=== PATIENT | female | born 1965 | race African-American/Black ===

== ENCOUNTER 2017-01-24 08:53 | Emergency (ER) | payer OTHER ==
[~2017-01-24] VITALS: Wt 86.6 kg
[~2017-01-24 08:53] MED LIST: ANAPROX DS550 MG PO; BACTRIM DS 8001 TA1 PO; CIPRO500 MG PO; FIORICET 325 MG1 TAB PO; FLEXERIL10 MG PO; MOTRIN800 MG PO; TRAMADOL HCL50 MG PO; ULTRAM50 MG PO
[2017-01-24] MEDS ORDERED: CLARITIN10 MG PO (09:04)
[2017-01-24] MEDS ORDERED: ZANTAC 150150 MG PO (09:04)
[2017-01-24 09:09] LABS: BASO % 0.6 % (0.0-1.0); EOS # 0.1 10*3/uL (0.0-0.4); EOS % 2.7 % (1.0-4.0); HEMATOCRIT 40.3 % (37.0-47.0); HEMOGLOBIN 12.2 g/dl (12.0-16.0); LYMPH # 1.6 10*3/uL (1.3-4.4); LYMPH % 30.4 % (27.0-41.0); MEAN CELL VOLUME 79.6 fl (81.0-99.0); MEAN CORPUSCULAR HGB 24.1 pg (27.0-31.0); MEAN CORPUSCULAR HGB CONC 30.3 g/dl (33.0-37.0); MONO # 0.6 10*3/uL (0.1-1.0); MONO % 11.8 % (3.0-9.0); NEUT # 2.9 10*3/uL (2.3-7.9); NEUT % 54.1 % (47.0-73.0); PLATELET COUNT AUTOMATED 189 10*3/uL (130-400); RED BLOOD COUNT 5.06 10*6/uL (4.10-5.10); RED CELL DISTRI WIDTH 14.4 % (0-14.5); WHITE BLOOD COUNT 5.3 10*3/uL (4.8-10.8)
[2017-01-24 09:18] LABS: PROTHROMBIN TIME 10.5 SECONDS (9.0-12.4)
[2017-01-24 09:26] LABS: ALBUMIN 3.6 gm/dl (3.1-4.5); ALKALINE PHOSPHATASE 85 U/L (45-117); BILIRUBIN, TOTAL 0.4 mg/dl (0.2-1.0); BUN 16 mg/dl (7-24); CARBON DIOXIDE 25 mmol/L (21-32); CHLORIDE 106 mmol/L (98-107); EST GLOM FILT AFRICAN AMERICAN > 60 ml/min; GLUCOSE 137 mg/dL (65-99); MAGNESIUM 1.9 mg/dL (1.5-2.1); POTASSIUM 3.9 mmol/L (3.5-5.1); SGOT/AST 34 IU/L (3-35); SGPT/ALT 65 U/L (12-78); SODIUM 140 mmol/L (136-145); TOTAL PROTEIN 7.7 gm/dL (6.4-8.2)
[2017-01-24 09:30] LABS: TROPONIN I 0.132 ng/ml (<0.045)
[2017-01-24 10:11] VITALS: BP 146/90
== END 2017-01-24 10:29 | disposition short-term general hospital (02) ==
LOC: ED 08:53
PROVIDERS: Emergency Medicine
DX: I21.4 Non-ST elevation (NSTEMI) myocardial infarction (principal); I10 Essential (primary) hypertension; E78.5 Hyperlipidemia, unspecified; E11.9 Type 2 diabetes mellitus without complications; Z79.899 Other long term (current) drug therapy

== ENCOUNTER → 2017-01-31 | Outpatient (CLI) | payer OTHER ==
[~2017-01-31] MED LIST changes: +CLARITIN10 MG PO; +ZANTAC 150150 MG PO
[2017-01-31 10:57] LABS: HEMOGLOBIN A1c 6.6 % (4.8-5.6)
== END | disposition home or self-care (01) ==
LOC: RESCLI 04:23 → LAB 04:23 → RESCLI 16:10
PROVIDERS: Internal Medicine
DX: Z00.01 Encounter for general adult medical examination with abnormal findings (principal); E78.00 Pure hypercholesterolemia, unspecified; R79.9 Abnormal finding of blood chemistry, unspecified

== ENCOUNTER → 2017-02-14 | Outpatient (CLI) | payer OTHER | END | disposition home or self-care (01) | LOC: RESCLI 03:05 | DX: N95.0 Postmenopausal bleeding (principal); T81.4XXA Infection following a procedure, initial encounter; I25.118 Atherosclerotic heart disease of native coronary artery with other forms of angina pectoris; R23.8 Other skin changes; D50.9 Iron deficiency anemia, unspecified; J30.2 Other seasonal allergic rhinitis; K62.5 Hemorrhage of anus and rectum; I10 Essential (primary) hypertension; K21.0 Gastro-esophageal reflux disease with esophagitis; F10.10 Alcohol abuse, uncomplicated; M54.9 Dorsalgia, unspecified; R73.03 Prediabetes; E11.9 Type 2 diabetes mellitus without complications ==

== ENCOUNTER → 2017-02-15 | Outpatient (CLI) | payer OTHER ==
[2017-02-15 18:51] LABS: BASO % 0.7 % (0.0-1.0); EOS # 0.1 10*3/uL (0.0-0.4); EOS % 2.2 % (1.0-4.0); HEMATOCRIT 40.3 % (37.0-47.0); HEMOGLOBIN 12.5 g/dl (12.0-16.0); LYMPH # 2.4 10*3/uL (1.3-4.4); LYMPH % 39.7 % (27.0-41.0); MEAN CELL VOLUME 79.5 fl (81.0-99.0); MEAN CORPUSCULAR HGB 24.7 pg (27.0-31.0); MEAN PLATELET VOLUME 11.4 fl (9.6-12.3); MONO # 0.7 10*3/uL (0.1-1.0); MONO % 12.3 % (3.0-9.0); NEUT # 2.7 10*3/uL (2.3-7.9); NEUT % 44.8 % (47.0-73.0); PLATELET COUNT AUTOMATED 267 10*3/uL (130-400); RED BLOOD COUNT 5.07 10*6/uL (4.10-5.10); RED CELL DISTRI WIDTH 14.2 % (0-14.5); WHITE BLOOD COUNT 5.9 10*3/uL (4.8-10.8)
== END | disposition home or self-care (01) ==
LOC: LAB 02:01 → US 18:00
PROVIDERS: Internal Medicine
DX: N95.0 Postmenopausal bleeding (principal)

== ENCOUNTER 2017-02-28 09:16 | Inpatient (IN) | payer OTHER ==
[~2017-02-28] VITALS: Ht 177.8 cm; Wt 83.9 kg
[2017-02-28] VITALS (7 sets, daily range): BP systolic 109–150; BP diastolic 68–90
--- NOTE | ~2017-02-28 | EKG ---
[place], [place] ELECTROCARDIOGRAM REPORT NAME: LEIGH ANN PHAN UNIT #: [id number] ROOM: 516 DOCTOR: NICHOLAS SANCHEZ [facility],TARAS BIRTHDATE: [birth year] DOS: 02/28/2017 TIME: 0935 CONCLUSION: 1. Sinus rhythm. 2. Nonspecific ST changes. TARAS PETERSON MD CM:EKGRPT:ELECTROCARDIOGRAM REPORT [id number] 1307 TARAS PETERSON MD [facility]
--- NOTE | ~2017-02-28 | ST ---
[place], [place] EXERCISE STRESS TEST REPORT NAME: LEIGH ANN PHAN UNIT #: [id number] ROOM: 516 DOCTOR: NICHOLAS SANCHEZ [facility],TARAS BIRTHDATE: [birth year] DOS: 03/01/2017 LEXISCAN WITH CARDIOLITE Received Lexiscan 0.4 mg over 10 seconds. Heart rate is 88. No ischemic changes on the EKG. Isotope was injected. No complications noted. Myocardial perfusion scan to follow. TARAS PETERSON MD CM:STRESS:EXERCISE STRESS TEST REPORT 1239 1257 ASHA COLEMAN MD [facility]
--- NOTE | ~2017-02-28 | CON ---
[place], [place] REPORT OF CONSULTATION NAME: LEIGH ANN PHAN UNIT #: [id number] ROOM: 516 DOCTOR: TARAS PETERSON MD, FACC BIRTHDATE: [birth year] DOS: 03/01/2017 CARDIOLOGY CONSULTATION. HISTORY OF PRESENT ILLNESS: The patient came in with history of precordial chest discomfort, came to the emergency room. The patient also has exertional dyspnea. Initial troponin was minimally elevated. REJI Hi also following the patient. Chest x-ray showed no pneumonia. PAST MEDICAL HISTORY: History of gastritis, hypertension, MRSA, and non-insulin dependent diabetes mellitus. PAST SURGICAL HISTORY: History of cardiac catheterization ____ tonsillectomy. SOCIAL HISTORY: Former smoker, not now. No alcohol or drug use. FAMILY HISTORY: Father with history of heart attack, . Mother has history of heart disease. ALLERGIES: No known allergies. PHYSICAL EXAMINATION: VITAL SIGNS: Stable. GENERAL: Alert, not in any acute distress. SKIN: Warm, not diaphoretic. LUNGS: No rales. HEART: S1, S2, regular. No gallops. ABDOMEN: Soft. Color is good. Not diaphoretic. No cyanosis. NEUROLOGICAL: No focal neurological deficits noted. RECTAL: Deferred, unrelated. GENITAL: Deferred, unrelated. BREASTS: Deferred, unrelated DIAGNOSTIC STUDIES: EKG: No acute changes noted. Sinus rhythm. Initial enzymes: Troponin is very minimally elevated and creatinine is upper limits abnormal. IMPRESSION: There is no evidence of critical acute coronary syndrome. Troponin is minimally elevated. No EKG changes. PLAN: Lexiscan with Cardiolite evaluate for myocardial ischemia. It was abnormal coronary artery ____ otherwise consult medical therapy and risk management. [place], [place] REPORT OF CONSULTATION NAME: ARBEN PHANMAIKEL Mariano UNIT #: [id number] ROOM: 516 DOCTOR: TARAS PETERSON MD, FACC BIRTHDATE: [birth year] TARAS PETERSON MD CM:CONSTR:REPORT OF CONSULTATION 1248 03/01/17 1411 interface ASHA PEDERSEN DO and JONO MONTESINOS MD
[2017-02-28 09:53] LABS: BASO % 0.8 % (0.0-1.0); EOS # 0.2 10*3/uL (0.0-0.4); EOS % 4.5 % (1.0-4.0); LYMPH % 41.3 % (27.0-41.0); MEAN CELL VOLUME 78.8 fl (81.0-99.0); MEAN CORPUSCULAR HGB 24.9 pg (27.0-31.0); MEAN CORPUSCULAR HGB CONC 31.6 g/dl (33.0-37.0); MONO # 0.6 10*3/uL (0.1-1.0); NEUT % 40.2 % (47.0-73.0); PLATELET COUNT AUTOMATED 234 10*3/uL (130-400); RED BLOOD COUNT 4.82 10*6/uL (4.10-5.10); RED CELL DISTRI WIDTH 13.5 % (0-14.5); WHITE BLOOD COUNT 4.9 10*3/uL (4.8-10.8)
[2017-02-28 10:02] LABS: PROTHROMBIN TIME 10.2 SECONDS (9.0-12.4)
[2017-02-28 10:09] LABS: ALBUMIN 3.9 gm/dl (3.1-4.5); BILIRUBIN, TOTAL 0.2 mg/dl (0.2-1.0); MAGNESIUM 2.2 mg/dL (1.5-2.1); POTASSIUM 4.6 mmol/L (3.5-5.1)
[2017-02-28 10:17] LABS: TROPONIN I 0.075 ng/ml (<0.045)
[2017-02-28] MEDS ORDERED: PRINIVIL10 MG PO (12:52)
[2017-02-28] MEDS ORDERED: TYLENOL325 M1 PO (12:53)
[2017-02-28] MEDS ORDERED: PROCARDIA XL30 MG PO (12:54)
[2017-02-28] MEDS ORDERED: TOPROL XL50 M1 PO (12:55)
[2017-02-28] MEDS ORDERED: HYDR25T PO (12:55)
[2017-02-28] MEDS ORDERED: PRILOSEC20 M1 PO (12:56)
[2017-02-28] MEDS ORDERED: FERROUS SULFAT325 MG PO (12:57)
[2017-02-28] MEDS ORDERED: CEPHALEXIN500 M1 PO (12:58)
[2017-02-28] MEDS ORDERED: NITROSTAT0.4 MG SL (22:49)
[2017-03-01] VITALS: BP 109/45
[2017-03-01 06:25] LABS: BASO % 0.7 % (0.0-1.0); EOS # 0.2 10*3/uL (0.0-0.4); EOS % 4.8 % (1.0-4.0); HEMATOCRIT 40.1 % (37.0-47.0); HEMOGLOBIN 11.8 g/dl (12.0-16.0); LYMPH % 48.4 % (27.0-41.0); MEAN CELL VOLUME 81.3 fl (81.0-99.0); MEAN CORPUSCULAR HGB 23.9 pg (27.0-31.0); MEAN CORPUSCULAR HGB CONC 29.4 g/dl (33.0-37.0); MEAN PLATELET VOLUME 10.8 fl (9.6-12.3); MONO # 0.5 10*3/uL (0.1-1.0); MONO % 11.8 % (3.0-9.0); NEUT # 1.4 10*3/uL (2.3-7.9); NEUT % 33.8 % (47.0-73.0); PLATELET COUNT AUTOMATED 204 10*3/uL (130-400); RED BLOOD COUNT 4.93 10*6/uL (4.10-5.10); RED CELL DISTRI WIDTH 13.8 % (0-14.5); WHITE BLOOD COUNT 4.2 10*3/uL (4.8-10.8)
[2017-03-01 06:27] LABS: ALBUMIN 3.4 gm/dl (3.1-4.5); BILIRUBIN, TOTAL 0.2 mg/dl (0.2-1.0); FREE T4 0.79 ng/dl (0.76-1.46); POTASSIUM 4.8 mmol/L (3.5-5.1); TOTAL PROTEIN 7.4 gm/dL (6.4-8.2)
[2017-03-01 06:32] LABS: THYROID STIM HORMONE (HS) 0.983 uIU/ml (0.358-4.75)
[2017-03-01 06:44] LABS: INTERNATIONAL NORM RATIO 0.9 (2.0-3.5); PROTHROMBIN TIME 9.4 SECONDS (8.9-12.2)
[2017-03-01 07:37] LABS: VITAMIN D, 25-HYDROXY 27.5 ng/mL (30-100)
[2017-03-01 07:38] LABS: FOLIC ACID 14.55 ng/mL (>5.38)
[2017-03-01 08:00] VITALS: BP 118/57; BP 120/84
[2017-03-01 12:00] VITALS: BP 134/88
[2017-03-01 16:00] VITALS: BP 146/80
[2017-03-01 20:00] VITALS: BP 137/66
[2017-03-02] VITALS: BP 137/84
[2017-03-02 05:56] LABS: BASO % 0.7 % (0.0-1.0); EOS # 0.2 10*3/uL (0.0-0.4); EOS % 4.4 % (1.0-4.0); HEMATOCRIT 39.3 % (37.0-47.0); HEMOGLOBIN 11.6 g/dl (12.0-16.0); LYMPH # 2.1 10*3/uL (1.3-4.4); LYMPH % 45.3 % (27.0-41.0); MEAN CELL VOLUME 81.9 fl (81.0-99.0); MEAN CORPUSCULAR HGB 24.2 pg (27.0-31.0); MEAN CORPUSCULAR HGB CONC 29.5 g/dl (33.0-37.0); MEAN PLATELET VOLUME 10.3 fl (9.6-12.3); MONO # 0.6 10*3/uL (0.1-1.0); MONO % 12.7 % (3.0-9.0); NEUT # 1.7 10*3/uL (2.3-7.9); NEUT % 36.7 % (47.0-73.0); PLATELET COUNT AUTOMATED 170 10*3/uL (130-400); RED CELL DISTRI WIDTH 13.8 % (0-14.5); WHITE BLOOD COUNT 4.6 10*3/uL (4.8-10.8)
[2017-03-02 06:04] LABS: ALBUMIN 3.2 gm/dl (3.1-4.5); BILIRUBIN, TOTAL 0.2 mg/dl (0.2-1.0); POTASSIUM 4.5 mmol/L (3.5-5.1); TOTAL PROTEIN 6.8 gm/dL (6.4-8.2)
[2017-03-02 08:00] VITALS: BP 126/72
[2017-03-02 12:00] VITALS: BP 127/76
[2017-03-02] MEDS ORDERED: BLOOD PRESSURE1 EACH MC (13:05)
[2017-03-02] MEDS ORDERED: D-1000 185 MG-11 TAB PO (13:05)
[2017-03-02] MEDS ORDERED: LISINOPRIL2.5 MG PO (13:05)
[2017-03-02] MEDS ORDERED: ZOCOR10 MG PO ×2 (14:00→14:46)
[2017-03-02] MEDS ORDERED: ASPIRIN CHEWABL81 MG PO (14:01)
== END 2017-03-02 15:00 | disposition home or self-care (01) | DRG 311 ==
LOC: ED 09:16 → 5E 10:54 → EDHOLD 10:54 → 5E 11:13
PROVIDERS: Internal Medicine; Student in an Organized Health Care Education/Training Program
PROC: 4A02XM4 Measurement of Cardiac Total Activity, External Approach (ICD-10-PCS; principal; 2017-03-01)
PROC: 3E073KZ Introduction of Other Diagnostic Substance into Coronary Artery, Percutaneous Approach (ICD-10-PCS; 2017-03-01)
DX: I20.9 Angina pectoris, unspecified (principal); N17.0 Acute kidney failure with tubular necrosis; E83.41 Hypermagnesemia; I10 Essential (primary) hypertension; K29.70 Gastritis, unspecified, without bleeding; E11.9 Type 2 diabetes mellitus without complications; E66.3 Overweight; Z82.49 Family history of ischemic heart disease and other diseases of the circulatory system; Z86.14 Personal history of Methicillin resistant Staphylococcus aureus infection; I25.2 Old myocardial infarction; Z98.891 History of uterine scar from previous surgery; Z79.899 Other long term (current) drug therapy

== ENCOUNTER → 2017-03-07 | Outpatient (CLI) | payer OTHER ==
[~2017-03-07] MED LIST changes: +ASPIRIN CHEWABL81 MG PO; +BLOOD PRESSURE1 EACH MC; +CEPHALEXIN500 M1 PO; +D-1000 185 MG-11 TAB PO; +FERROUS SULFAT325 MG PO; +HYDR25T PO; +LISINOPRIL2.5 MG PO; +NITROSTAT0.4 MG SL; +PRILOSEC20 M1 PO; +PRINIVIL10 MG PO; +PROCARDIA XL30 MG PO; +TOPROL XL50 M1 PO; +TYLENOL325 M1 PO; +ZOCOR10 MG PO
== END | disposition home or self-care (01) ==
LOC: RESCLI 02:55
DX: I25.110 Atherosclerotic heart disease of native coronary artery with unstable angina pectoris (principal); J30.2 Other seasonal allergic rhinitis; D50.9 Iron deficiency anemia, unspecified; R19.5 Other fecal abnormalities; N95.0 Postmenopausal bleeding; I10 Essential (primary) hypertension; K21.9 Gastro-esophageal reflux disease without esophagitis; E11.65 Type 2 diabetes mellitus with hyperglycemia; E55.9 Vitamin D deficiency, unspecified; F10.10 Alcohol abuse, uncomplicated; B37.9 Candidiasis, unspecified

== ENCOUNTER → 2017-04-04 | Outpatient (CLI) | payer OTHER | END | disposition home or self-care (01) | LOC: RESCLI 01:29 | DX: I25.118 Atherosclerotic heart disease of native coronary artery with other forms of angina pectoris (principal); I10 Essential (primary) hypertension; R73.03 Prediabetes; K21.9 Gastro-esophageal reflux disease without esophagitis; J30.2 Other seasonal allergic rhinitis; E55.9 Vitamin D deficiency, unspecified; D50.9 Iron deficiency anemia, unspecified; R19.5 Other fecal abnormalities; N95.0 Postmenopausal bleeding; B37.9 Candidiasis, unspecified; E66.3 Overweight; F41.9 Anxiety disorder, unspecified ==

== ENCOUNTER → 2017-05-02 | Day surgery (SDC) | payer OTHER ==
[~2017-05-02] VITALS: Ht 177.8 cm; Wt 84.8 kg
[~2017-05-02] MED LIST changes: +HYDROCHLOROTHIA25 M1 PO; +PAXIL20 M1 PO
--- NOTE | ~2017-05-02 | O ---
[place], [place] OPERATIVE NOTE NAME: LEIGH ANN PHAN UNIT #: [id number] ROOM: DOCTOR: JONO MONTESINOS MD BIRTHDATE: [birth year] DOS: GASTROENDOSCOPIC REPORT INDICATION: The patient is a 51-year-old patient who has presented with blood on stool and patient with dyspepsia. The patient has been aggressive alcohol consumer who has recently stopped drinking. ALLERGIES: No known medications. SOCIAL AND FAMILY HISTORY: Father and grandfather with gastroesophageal reflux disease. SOCIAL HISTORY: Nonsmoker. . PROCEDURE: Today's procedure part of investigation is colonoscopy and panendoscopy. PREMEDICATION: Versed and Diprivan. SCOPE: Olympus forward-viewing gastroscope Q10 video. REPORT: After putting the patient in the left lateral position and after application of lubricant to the scope, scope was introduced; thereafter, under direct visualization, advanced through the length of the esophagus without difficulty. Esophagus surprisingly enough free of ulceration and lesion and esophageal varicosities. Gastric pouch was entered. Gastritis of mild degree noticed. Antral biopsy obtained. Duodenal bulb, second and third part within normal limits. The patient was gradually extubated, tolerated the procedure well. IMPRESSION: Mild gastritis, status post biopsy, ruling out Helicobacter pylori. PLAN: Omeprazole 20 mg 1 daily, supportive management otherwise, the patient was advised to abstain from alcohol. Furthermore, we are going to proceed with colonoscopic evaluation, she is already on. We are going to proceed with colonoscopic evaluation. [place], [place] OPERATIVE NOTE NAME: ARBEN PHANCI [place] UNIT #: [id number] ROOM: DOCTOR: JONO MONTESINOS MD BIRTHDATE: [birth year] JONO MONTESINOS MD CM:OPRECORD:OPERATIVE NOTE 1051 1353 JONO MONTESINOS MD 05/02/17 1352 interface
--- NOTE | ~2017-05-02 | O ---
[place], [place] OPERATIVE NOTE NAME: LEIGH ANN PHAN UNIT #: [id number] ROOM: DOCTOR: JONO MONTESINOS MD BIRTHDATE: [birth year] DOS: GASTROENDOSCOPIC REPORT INDICATION: The patient has presented with history of blood on stool, on the toilet tissue also, father and grandfather with colonic carcinoma. PROCEDURE: Todays' procedure part of investigation is colonoscopy plus piecemeal polypectomy. PREMEDICATION: Versed and Diprivan. SCOPE: Olympus forward-viewing colonoscope 10L video. REPORT: After putting the patient in the left lateral position and after application of lubricant to rectal pouch and digital examination, the scope was introduced; thereafter, under direct visualization, advanced through the length of colon without difficulty. Base of the cecum explored, appendiceal orifice identified and ileocecal valve was defined. Scope was gradually withdrawn from ascending, transverse, descending colon, mid transverse colon. Sessile polypoid lesion with piecemeal polypectomy removed. GI reflexion of the scope in the rectum, small hemorrhoid was noticed, otherwise no acute pathology was seen. The patient extubated, tolerated procedure well. IMPRESSION: Small hemorrhoid, otherwise sessile colonic polyp, mid transverse colon. PLAN: High fiber fruit diet. ACTIVITY: Ad claribel. FOLLOWUP: Routinely with you in office, p.r.n. visit with us in GI Clinic. I thank you very much indeed for your kind referral. ADDENDUM FINAL DIAGNOSIS: Hiatal hernia 2 cm. [place], [place] OPERATIVE NOTE NAME: LEIGH ANN PHAN UNIT #: [id number] ROOM: DOCTOR: JONO MONTESINOS MD BIRTHDATE: [birth year] JONO MONTESINOS MD CM:OPRECORD:OPERATIVE NOTE 1051 1404 JONO MONTESINOS MD 05/03/17 1625 interface
[2017-05-02 09:30] VITALS: BP 124/61
[2017-05-02 10:50] VITALS: BP 92/51
[2017-05-02 11:05] VITALS: BP 110/59
[2017-05-02 11:18] VITALS: BP 123/69
== END | disposition home or self-care (01) ==
LOC: SDC 04-27 10:15
DX: K63.5 Polyp of colon (principal); K29.50 Unspecified chronic gastritis without bleeding; K64.8 Other hemorrhoids; Z80.0 Family history of malignant neoplasm of digestive organs; E11.9 Type 2 diabetes mellitus without complications; I25.2 Old myocardial infarction; I10 Essential (primary) hypertension; J45.909 Unspecified asthma, uncomplicated; K21.9 Gastro-esophageal reflux disease without esophagitis; F41.9 Anxiety disorder, unspecified; Z82.49 Family history of ischemic heart disease and other diseases of the circulatory system; Z88.3 Allergy status to other anti-infective agents; Z87.891 Personal history of nicotine dependence

== ENCOUNTER → 2017-05-16 | Outpatient (CLI) | payer OTHER ==
[2017-05-16 09:51] LABS: BUN 15 mg/dl (7-24); CHLORIDE 106 mmol/L (98-107); CREATININE 1.01 mg/dL (0.55-1.02); POTASSIUM 4.1 mmol/L (3.5-5.1); SODIUM 141 mmol/L (136-145)
== END | disposition home or self-care (01) ==
LOC: RESCLI 01:00 → LAB 01:00 → RESCLI 10:45
PROVIDERS: Internal Medicine Cardiovascular Disease
DX: I10 Essential (primary) hypertension (principal)

== ENCOUNTER 2017-06-01 07:56 | Emergency (ER) | payer OTHER ==
[~2017-06-01] VITALS: Ht 177.8 cm; Wt 83.5 kg
[2017-06-01 08:07] VITALS: BP 144/94
[2017-06-01] MEDS ORDERED: FLAGYL500 MG PO (08:37)
[2017-06-01] MEDS ORDERED: CLARITHROMYCIN500 MG PO (08:37)
[2017-06-01] MEDS ORDERED: DEEP SEA44 ML NAS (08:38)
[2017-06-01] MEDS ORDERED: CYCLOBENZAPRINE10 MG PO (10:49)
== END 2017-06-01 11:24 | disposition home or self-care (01) ==
LOC: ED 07:56
DX: M25.551 Pain in right hip (principal); R20.0 Anesthesia of skin; N17.9 Acute kidney failure, unspecified; I10 Essential (primary) hypertension; E83.41 Hypermagnesemia; E11.9 Type 2 diabetes mellitus without complications; Z79.899 Other long term (current) drug therapy; Z86.14 Personal history of Methicillin resistant Staphylococcus aureus infection; Z98.890 Other specified postprocedural states

== ENCOUNTER → 2017-07-04 | Outpatient (CLI) | payer OTHER ==
[~2017-07-04] MED LIST changes: +CLARITHROMYCIN500 MG PO; +CYCLOBENZAPRINE10 MG PO; +DEEP SEA44 ML NAS; +FLAGYL500 MG PO
== END ==
LOC: RESCLI 02:12
DX: I25.10 Atherosclerotic heart disease of native coronary artery without angina pectoris (principal); I10 Essential (primary) hypertension; J30.2 Other seasonal allergic rhinitis; E11.9 Type 2 diabetes mellitus without complications; K21.9 Gastro-esophageal reflux disease without esophagitis; E55.9 Vitamin D deficiency, unspecified; N95.0 Postmenopausal bleeding; D50.9 Iron deficiency anemia, unspecified; E66.3 Overweight; F41.9 Anxiety disorder, unspecified

== ENCOUNTER 2017-09-29 06:31 | Emergency (ER) | payer OTHER ==
[~2017-09-29] VITALS: Ht 177.8 cm; Wt 84.8 kg
[2017-09-29 06:36] VITALS: BP 164/95
[2017-09-29] MEDS ORDERED: AVPAK AZITHROM250 M1 PO (08:09)
[2017-09-29] MEDS ORDERED: PREDNISONE50 MG PO (08:09)
== END 2017-09-29 08:25 | disposition home or self-care (01) ==
LOC: ED 06:31
DX: J44.9 Chronic obstructive pulmonary disease, unspecified (principal); R05 Cough; I10 Essential (primary) hypertension; Z68.29 Body mass index [BMI] 29.0-29.9, adult; Z79.899 Other long term (current) drug therapy; Z90.89 Acquired absence of other organs

== ENCOUNTER → 2017-10-31 | Outpatient (CLI) | payer OTHER ==
[~2017-10-31] MED LIST changes: +AVPAK AZITHROM250 M1 PO; +PREDNISONE50 MG PO
== END | disposition home or self-care (01) ==
LOC: RESCLI 03:54
DX: I10 Essential (primary) hypertension (principal); K21.9 Gastro-esophageal reflux disease without esophagitis; E11.9 Type 2 diabetes mellitus without complications; E55.9 Vitamin D deficiency, unspecified; D50.9 Iron deficiency anemia, unspecified; I25.10 Atherosclerotic heart disease of native coronary artery without angina pectoris; J30.2 Other seasonal allergic rhinitis; N39.46 Mixed incontinence; M54.41 Lumbago with sciatica, right side; G89.29 Other chronic pain; R05 Cough; E66.3 Overweight

== ENCOUNTER 2017-11-07 08:11 | Inpatient (IN) | payer OTHER ==
[~2017-11-07] VITALS: Ht 179.1 cm; Wt 87.6 kg
--- NOTE | ~2017-11-07 | EKG ---
[place], [place] ELECTROCARDIOGRAM REPORT NAME: LEIGH ANN PHAN UNIT #: [id number] ROOM: [facility] DOCTOR: NICHOLAS SANCHEZ [facility] BIRTHDATE: [birth year] DOS: 11/08/2017 CONCLUSION: 1. Sinus rhythm. 2. Poor R-wave progression in the precordial leads. 3. Nonspecific ST changes. TARAS PETERSON MD CM:EKGRPT:ELECTROCARDIOGRAM REPORT 1226 1303 TARAS PETERSON MD [facility]
--- NOTE | ~2017-11-07 | CON ---
[place], [place] REPORT OF CONSULTATION NAME: LEIGH ANN PHAN UNIT #: [id number] ROOM: 504 DOCTOR: TARAS PETERSON MD, FACC BIRTHDATE: [birth year] DOS: 11/08/2017 CARDIOLOGY CONSULTATION HISTORY OF PRESENT ILLNESS: The patient is a 52-year-old female, who came in with history of cough and shortness of breath. No syncope or presyncope. The patient has been sick for several days and the patient has been followed in Internal Medicine Clinic. Symptoms progressed and worsened, when came to the hospital. The patient has ____ history of tobacco use and cocaine. The patient denies any tobacco use. No history of cocaine or any drug abuse. The patient received Solu-Medrol and breathing treatments and also Levaquin IV 750 mg and the chest x-ray was initially unremarkable. The patient came to the Emergency Room and the patient found to have a pneumonitis, history of colonoscopy and polypectomy. The patient has EGD also in the past. The patient has renal failure in the past, not at this time. SOCIAL HISTORY: No alcohol, drug, or tobacco use. Cocaine use in the past. PAST MEDICAL HISTORY: History of hypertension, history of three sections, and cardiac catheterization in the past. FAMILY HISTORY: Father with a myocardial infarction. Mother with history of heart disease and has from the ____. ALLERGIES: No known allergies. MEDICATIONS: The patient is on baby aspirin, albuterol, iron supplements, hydrochlorothiazide, losartan, and metoprolol. PHYSICAL EXAMINATION: LUNGS: On auscultation of the lungs, the patient has a bilateral diffuse rhonchi and air exchange is fairly good. HEART: S1, S2. No gallops. IMPRESSION: History of hypertension. No history of acute coronary syndrome, underlying pulmonary infection with a pneumonitis. PLAN: We will continue the current management. I will follow the patient. [place], [place] REPORT OF CONSULTATION NAME: LEIGH ANN PHAN UNIT #: [id number] ROOM: 504 DOCTOR: TARAS PETERSON MD, FACC BIRTHDATE: [birth year] TARAS PETERSON MD CM:CONSTR:REPORT OF CONSULTATION 1727 11/09/17 0720 interface
[2017-11-07 08:13] VITALS: BP 163/82
[2017-11-07] MEDS ORDERED: TESSALON PERLE100 M1 PO (08:17)
[2017-11-07] MEDS ORDERED: COZAAR25 M1 PO (08:17)
[2017-11-07 08:36] LABS: BASO % 0.2 % (0.0-1.0); EOS # 0.1 10*3/uL (0.0-0.4); EOS % 1.4 % (1.0-4.0); HEMOGLOBIN 10.8 g/dl (12.0-16.0); LYMPH # 1.4 10*3/uL (1.3-4.4); MEAN CELL VOLUME 78.7 fl (81.0-99.0); MEAN CORPUSCULAR HGB 24.3 pg (27.0-31.0); MEAN CORPUSCULAR HGB CONC 30.9 g/dl (33.0-37.0); MEAN PLATELET VOLUME 10.9 fl (9.6-12.3); MONO # 0.7 10*3/uL (0.1-1.0); MONO % 17.3 % (3.0-9.0); NEUT # 2.1 10*3/uL (2.3-7.9); NEUT % 48.9 % (47.0-73.0); PLATELET COUNT AUTOMATED 166 10*3/uL (130-400); RED BLOOD COUNT 4.45 10*6/uL (4.10-5.10); RED CELL DISTRI WIDTH 13.9 % (0-14.5); WHITE BLOOD COUNT 4.2 10*3/uL (4.8-10.8)
[2017-11-07 08:45] LABS: ACT PARTIAL THROMBO TIME 25.2 SECONDS (20.8-31.5); INTERNATIONAL NORM RATIO 0.9 (2.0-3.5)
[2017-11-07 08:52] LABS: ALBUMIN 3.4 gm/dl (3.1-4.5); CREATININE 1.36 mg/dL (0.55-1.02); POTASSIUM 4.2 mmol/L (3.5-5.1); TOTAL PROTEIN 7.8 gm/dL (6.4-8.2); TROPONIN I 0.024 ng/ml (<0.045)
[2017-11-07] MEDS ORDERED: PROAIR HFA8.5 GM INH (10:49)
[2017-11-07] MEDS ORDERED: OXYBUTYNIN5 MG PO (10:50)
[2017-11-07] MEDS ORDERED: 24 HOUR ALLERG9.9 ML NAS (10:50)
[2017-11-07] MEDS ORDERED: OMEPRAZOLE D/R20 MG PO (10:51)
[2017-11-07] MEDS ORDERED: LISINOPRIL2.5 MG PO (10:51)
[2017-11-07] MEDS ORDERED: ASPIRIN CHEWABL81 MG PO (10:52)
[2017-11-07 11:10] VITALS: BP 149/71
[2017-11-07 11:19] VITALS: BP 149/71
[2017-11-07] MEDS ORDERED: TOPROL XL50 M1 PO (11:31)
[2017-11-07 12:00] VITALS: BP 150/70
[2017-11-07 13:55] LABS: TROPONIN I 0.017 ng/ml (<0.045)
[2017-11-07 13:57] LABS: CKMB 1.6 ng/ml (0.5-3.6)
[2017-11-07 16:00] VITALS: BP 145/72
[2017-11-07 17:46] LABS: CKMB 1.7 ng/ml (0.5-3.6)
[2017-11-07 17:48] LABS: TROPONIN I 0.022 ng/ml (<0.045)
[2017-11-07 20:00] VITALS: BP 119/67
[2017-11-08] VITALS: BP 134/69
[2017-11-08 06:49] LABS: ALBUMIN 3.1 gm/dl (3.1-4.5); BUN 19 mg/dl (7-24); CHLORIDE 105 mmol/L (98-107); CHOLESTEROL 155 mg/dL (<200); CREATININE 1.32 mg/dL (0.55-1.02); PHOSPHOROUS 2.5 mg/dL (2.5-4.9); POTASSIUM 4.3 mmol/L (3.5-5.1); SGOT/AST 16 IU/L (3-35); SGPT/ALT 23 U/L (12-78); SODIUM 138 mmol/L (136-145); TOTAL PROTEIN 7.5 gm/dL (6.4-8.2); TRIGLYCERIDES 61 mg/dl (<150); VLDL CHOLESTEROL 12 mg/dL (6-40)
[2017-11-08 06:51] LABS: HEMATOCRIT 36.1 % (37.0-47.0); HEMOGLOBIN 10.7 g/dl (12.0-16.0); MEAN CELL VOLUME 80.4 fl (81.0-99.0); MEAN CORPUSCULAR HGB 23.8 pg (27.0-31.0); MEAN CORPUSCULAR HGB CONC 29.6 g/dl (33.0-37.0); MEAN PLATELET VOLUME 11.9 fl (9.6-12.3); PLATELET COUNT AUTOMATED 192 10*3/uL (130-400); RED BLOOD COUNT 4.49 10*6/uL (4.10-5.10); RED CELL DISTRI WIDTH 13.8 % (0-14.5); WHITE BLOOD COUNT 5.1 10*3/uL (4.8-10.8)
[2017-11-08 06:56] LABS: ALKALINE PHOSPHATASE 84 U/L (45-117); FREE T4 0.87 ng/dl (0.76-1.46); HDL CHOLESTEROL 58 mg/dl (40-60); LDL CHOLESTEROL 85 mg/dL (9-159); THYROID STIM HORMONE (HS) 0.359 uIU/ml (0.358-4.75)
[2017-11-08 07:32] LABS: PLATELET SUFFICIENCY NORMAL (NORMAL); TOTAL CELLS COUNTED 100 #CELLS
[2017-11-08 08:00] VITALS: BP 150/69
[2017-11-08 08:20] LABS: VITAMIN D, 25-HYDROXY 14.2 ng/mL (30-100)
[2017-11-08 12:00] VITALS: BP 146/66
[2017-11-08 16:00] VITALS: BP 108/61
[2017-11-08 20:00] VITALS: BP 132/58
[2017-11-09] VITALS: BP 155/65
[2017-11-09 08:00] VITALS: BP 153/84
[2017-11-09] MEDS ORDERED: PREDNISONE10 MG PO (11:18)
[2017-11-09] MEDS ORDERED: LEVOFLOXACIN500 MG PO (11:18)
[2017-11-09] MEDS ORDERED: MUCINEX ER600 MG PO (11:18)
== END 2017-11-09 12:34 | disposition home or self-care (01) | DRG 871 ==
LOC: ED 08:11 → 5E 10:10 → EDHOLD 10:10 → 5E 10:32
PROVIDERS: Emergency Medicine; Internal Medicine Cardiovascular Disease; Registered Nurse
DX: A41.9 Sepsis, unspecified organism (principal); J18.9 Pneumonia, unspecified organism; J96.01 Acute respiratory failure with hypoxia; N18.3 Chronic kidney disease, stage 3 (moderate); D50.9 Iron deficiency anemia, unspecified; F32.9 Major depressive disorder, single episode, unspecified; K21.9 Gastro-esophageal reflux disease without esophagitis; N32.81 Overactive bladder; I12.9 Hypertensive chronic kidney disease with stage 1 through stage 4 chronic kidney disease, or unspecified chronic kidney disease; E66.3 Overweight; E83.41 Hypermagnesemia; Z79.899 Other long term (current) drug therapy; Z79.82 Long term (current) use of aspirin; I25.2 Old myocardial infarction; Z98.891 History of uterine scar from previous surgery; Z82.49 Family history of ischemic heart disease and other diseases of the circulatory system; Z83.3 Family history of diabetes mellitus; Z86.14 Personal history of Methicillin resistant Staphylococcus aureus infection; Z68.26 Body mass index [BMI] 26.0-26.9, adult

== ENCOUNTER → 2017-11-13 | Outpatient (CLI) | payer OTHER ==
[~2017-11-13] MED LIST changes: +24 HOUR ALLERG9.9 ML NAS; +COZAAR25 M1 PO; +LEVOFLOXACIN500 MG PO; +MUCINEX ER600 MG PO; +OMEPRAZOLE D/R20 MG PO; +OXYBUTYNIN5 MG PO; +PREDNISONE10 MG PO; +PROAIR HFA8.5 GM INH; +TESSALON PERLE100 M1 PO
== END | disposition home or self-care (01) ==
LOC: RESCLI 10:50
DX: J30.2 Other seasonal allergic rhinitis (principal); J40 Bronchitis, not specified as acute or chronic; M54.41 Lumbago with sciatica, right side; E55.9 Vitamin D deficiency, unspecified; I10 Essential (primary) hypertension; E11.9 Type 2 diabetes mellitus without complications; K21.9 Gastro-esophageal reflux disease without esophagitis; D50.9 Iron deficiency anemia, unspecified; N17.0 Acute kidney failure with tubular necrosis; I25.10 Atherosclerotic heart disease of native coronary artery without angina pectoris; F41.9 Anxiety disorder, unspecified

== ENCOUNTER → 2017-12-04 | Outpatient (CLI) | payer OTHER | END | disposition home or self-care (01) | LOC: RESCLI 01:50 | DX: I25.119 Atherosclerotic heart disease of native coronary artery with unspecified angina pectoris (principal); M54.41 Lumbago with sciatica, right side; R10.11 Right upper quadrant pain; I10 Essential (primary) hypertension; E61.1 Iron deficiency; E55.9 Vitamin D deficiency, unspecified; E66.3 Overweight; F41.9 Anxiety disorder, unspecified ==

== ENCOUNTER → 2018-02-22 | Outpatient (CLI) | payer OTHER ==
[2018-02-22 08:33] LABS: BASO % 0.4 % (0.0-1.0); EOS # 0.2 10*3/uL (0.0-0.4); EOS % 3.5 % (1.0-4.0); HEMATOCRIT 38.9 % (37.0-47.0); HEMOGLOBIN 11.5 g/dl (12.0-16.0); LYMPH # 2.1 10*3/uL (1.3-4.4); LYMPH % 42.5 % (27.0-41.0); MEAN CELL VOLUME 79.6 fl (81.0-99.0); MEAN CORPUSCULAR HGB 23.5 pg (27.0-31.0); MEAN CORPUSCULAR HGB CONC 29.6 g/dl (33.0-37.0); MEAN PLATELET VOLUME 11.4 fl (9.6-12.3); MONO # 0.6 10*3/uL (0.1-1.0); MONO % 12.5 % (3.0-9.0); NEUT % 40.9 % (47.0-73.0); PLATELET COUNT AUTOMATED 249 10*3/uL (130-400); RED BLOOD COUNT 4.89 10*6/uL (4.10-5.10); RED CELL DISTRI WIDTH 14.2 % (0-14.5); WHITE BLOOD COUNT 4.9 10*3/uL (4.8-10.8)
[2018-02-22 08:47] LABS: ALBUMIN 3.7 gm/dl (3.1-4.5); CREATININE 1.67 mg/dL (0.55-1.02); POTASSIUM 3.8 mmol/L (3.5-5.1)
[2018-02-22 08:56] LABS: TOTAL PROTEIN 7.6 gm/dL (6.4-8.2)
[2018-02-22 09:31] LABS: VITAMIN D, 25-HYDROXY 21.6 ng/mL (30-100)
== END | disposition home or self-care (01) ==
LOC: LAB 07:37
PROVIDERS: Internal Medicine
DX: M25.551 Pain in right hip (principal); M54.41 Lumbago with sciatica, right side; I10 Essential (primary) hypertension

== ENCOUNTER → 2018-03-07 | Outpatient (CLI) | payer OTHER ==
[2018-03-07 13:04] LABS: CREATININE 1.22 mg/dL (0.55-1.02); POTASSIUM 4.2 mmol/L (3.5-5.1)
== END | disposition home or self-care (01) ==
LOC: RESCLI 04:35
PROVIDERS: Student in an Organized Health Care Education/Training Program
DX: Z00.00 Encounter for general adult medical examination without abnormal findings (principal); I12.9 Hypertensive chronic kidney disease with stage 1 through stage 4 chronic kidney disease, or unspecified chronic kidney disease; E11.22 Type 2 diabetes mellitus with diabetic chronic kidney disease; N18.3 Chronic kidney disease, stage 3 (moderate); K21.9 Gastro-esophageal reflux disease without esophagitis; I25.119 Atherosclerotic heart disease of native coronary artery with unspecified angina pectoris; E78.1 Pure hyperglyceridemia; E61.1 Iron deficiency; E55.9 Vitamin D deficiency, unspecified; E66.3 Overweight; M54.41 Lumbago with sciatica, right side

== ENCOUNTER → 2018-03-08 | Outpatient (CLI) | payer OTHER | END | disposition home or self-care (01) | LOC: US 06:50 | DX: K76.0 Fatty (change of) liver, not elsewhere classified (principal) ==

== ENCOUNTER → 2018-05-16 | Outpatient (CLI) | payer OTHER ==
[2018-05-16 10:21] LABS: EOS # 0.2 10*3/uL (0.0-0.4); EOS % 5.2 % (1.0-4.0); HEMOGLOBIN 11.8 g/dl (12.0-16.0); LYMPH # 1.5 10*3/uL (1.3-4.4); LYMPH % 39.6 % (27.0-41.0); MEAN CELL VOLUME 81.1 fl (81.0-99.0); MEAN CORPUSCULAR HGB 23.9 pg (27.0-31.0); MEAN CORPUSCULAR HGB CONC 29.5 g/dl (33.0-37.0); MEAN PLATELET VOLUME 10.3 fl (9.6-12.3); MONO # 0.5 10*3/uL (0.1-1.0); MONO % 13.5 % (3.0-9.0); NEUT # 1.6 10*3/uL (2.3-7.9); NEUT % 40.4 % (47.0-73.0); PLATELET COUNT AUTOMATED 215 10*3/uL (130-400); RED BLOOD COUNT 4.93 10*6/uL (4.10-5.10); RED CELL DISTRI WIDTH 14.6 % (0-14.5); WHITE BLOOD COUNT 3.8 10*3/uL (4.8-10.8)
[2018-05-16 10:53] LABS: ALBUMIN 3.9 gm/dl (3.1-4.5); ALKALINE PHOSPHATASE 106 U/L (45-117); BUN 13 mg/dl (7-24); CHLORIDE 103 mmol/L (98-107); CREATININE 1.08 mg/dL (0.55-1.02); IRON 100 ug/dL (50-170); POTASSIUM 4.1 mmol/L (3.5-5.1); SGOT/AST 30 IU/L (3-35); SGPT/ALT 54 U/L (12-78); SODIUM 139 mmol/L (136-145); TOTAL IRON BINDING CAPACITY 404 ug/dl (250-450); TOTAL PROTEIN 8.2 gm/dL (6.4-8.2)
== END | disposition home or self-care (01) ==
LOC: RESCLI 02:39
PROVIDERS: Student in an Organized Health Care Education/Training Program
DX: I12.9 Hypertensive chronic kidney disease with stage 1 through stage 4 chronic kidney disease, or unspecified chronic kidney disease (principal); E11.22 Type 2 diabetes mellitus with diabetic chronic kidney disease; N18.3 Chronic kidney disease, stage 3 (moderate); I25.119 Atherosclerotic heart disease of native coronary artery with unspecified angina pectoris; E61.1 Iron deficiency; E55.9 Vitamin D deficiency, unspecified; E66.3 Overweight; E11.9 Type 2 diabetes mellitus without complications; E78.1 Pure hyperglyceridemia; K21.9 Gastro-esophageal reflux disease without esophagitis; M54.41 Lumbago with sciatica, right side

== ENCOUNTER → 2018-05-28 | Outpatient (CLI) | payer OTHER | END | disposition home or self-care (01) | LOC: RESCLI 11:15 | DX: I25.10 Atherosclerotic heart disease of native coronary artery without angina pectoris (principal); I12.9 Hypertensive chronic kidney disease with stage 1 through stage 4 chronic kidney disease, or unspecified chronic kidney disease; E11.22 Type 2 diabetes mellitus with diabetic chronic kidney disease; N18.3 Chronic kidney disease, stage 3 (moderate); B96.89 Other specified bacterial agents as the cause of diseases classified elsewhere; J01.90 Acute sinusitis, unspecified; K21.9 Gastro-esophageal reflux disease without esophagitis; E55.9 Vitamin D deficiency, unspecified; D50.9 Iron deficiency anemia, unspecified; F41.9 Anxiety disorder, unspecified; J30.2 Other seasonal allergic rhinitis; N39.46 Mixed incontinence; M54.41 Lumbago with sciatica, right side; G89.29 Other chronic pain; E78.1 Pure hyperglyceridemia; Z79.899 Other long term (current) drug therapy; Z79.82 Long term (current) use of aspirin ==

== ENCOUNTER 2018-09-29 12:41 | Emergency (ER) | payer OTHER ==
[~2018-09-29] VITALS: Ht 177.8 cm; Wt 93.0 kg
[2018-09-29 12:42] VITALS: BP 174/75
== END 2018-09-29 15:00 | disposition home or self-care (01) ==
LOC: ED 12:41
DX: S46.912A Strain of unspecified muscle, fascia and tendon at shoulder and upper arm level, left arm, initial encounter (principal); S70.02XA Contusion of left hip, initial encounter; M54.2 Cervicalgia; M43.6 Torticollis; M25.532 Pain in left wrist; Z79.899 Other long term (current) drug therapy; Z79.2 Long term (current) use of antibiotics; Z79.82 Long term (current) use of aspirin; Z87.891 Personal history of nicotine dependence; W19.XXXA Unspecified fall, initial encounter; Y93.89 Activity, other specified; Y92.89 Other specified places as the place of occurrence of the external cause; Y99.8 Other external cause status

== ENCOUNTER 2018-10-04 09:48 | Emergency (ER) | payer OTHER ==
[~2018-10-04] VITALS: Ht 177.8 cm; Wt 93.0 kg
[2018-10-04 09:49] VITALS: BP 167/114
[2018-10-04] MEDS ORDERED: CYCLOBENZAPRINE5 M3 PO (10:16)
[2018-10-04] MEDS ORDERED: FLONASE ALLERG9.9 ML NAS (10:16)
[2018-10-04] MEDS ORDERED: Motrin,Rufen800 MG PO (10:16)
[2018-10-04] MEDS ORDERED: ZYRTEC10 MG PO (10:16)
[2018-10-04] MEDS ORDERED: TYLENOL325 M1 PO (10:57)
== END 2018-10-04 10:50 | disposition home or self-care (01) ==
LOC: ED 09:48
DX: M43.6 Torticollis (principal); M54.2 Cervicalgia; J31.0 Chronic rhinitis; Z87.891 Personal history of nicotine dependence; Z90.89 Acquired absence of other organs; Z98.51 Tubal ligation status; Z98.890 Other specified postprocedural states; Z79.899 Other long term (current) drug therapy; Z79.82 Long term (current) use of aspirin

== ENCOUNTER 2019-02-14 16:20 | Emergency (ER) | payer OTHER ==
[~2019-02-14] VITALS: Ht 177.8 cm; Wt 93.0 kg
[~2019-02-14 16:20] MED LIST changes: +CYCLOBENZAPRINE5 M3 PO; +FLONASE ALLERG9.9 ML NAS; +Motrin,Rufen800 MG PO; +ZYRTEC10 MG PO
[2019-02-14 16:22] VITALS: BP 169/100
[2019-02-14] MEDS ORDERED: Tobrex Ophth S2.5 ML OPH (16:30)
== END 2019-02-14 16:28 | disposition home or self-care (01) ==
LOC: ED 16:20
DX: H10.9 Unspecified conjunctivitis (principal); Z79.899 Other long term (current) drug therapy; Z79.2 Long term (current) use of antibiotics; Z79.82 Long term (current) use of aspirin; Z87.891 Personal history of nicotine dependence

== ENCOUNTER 2019-03-01 12:35 | Emergency (ER) | payer OTHER ==
[~2019-03-01] VITALS: Ht 177.8 cm; Wt 93.0 kg
[~2019-03-01 12:35] MED LIST changes: +Tobrex Ophth S2.5 ML OPH
[2019-03-01 12:36] VITALS: BP 149/90
[2019-03-01] MEDS ORDERED: ROBAXIN500 M1 PO (12:51)
[2019-03-01] MEDS ORDERED: MEDROL DOSEPAK4 MG PO (12:51)
[2019-03-01] MEDS ORDERED: NAPROSYN500 MG PO (12:51)
== END 2019-03-01 13:18 | disposition home or self-care (01) ==
LOC: ED 12:35
DX: M54.41 Lumbago with sciatica, right side (principal); Z79.2 Long term (current) use of antibiotics; Z79.82 Long term (current) use of aspirin; Z79.899 Other long term (current) drug therapy; Z87.891 Personal history of nicotine dependence; X50.0XXA Overexertion from strenuous movement or load, initial encounter; Y93.89 Activity, other specified; Y92.89 Other specified places as the place of occurrence of the external cause; Y99.8 Other external cause status

== ENCOUNTER 2019-08-20 12:20 | Emergency (ER) | payer OTHER ==
[~2019-08-20] VITALS: Ht 177.8 cm; Wt 90.3 kg
[~2019-08-20 12:20] MED LIST changes: +MEDROL DOSEPAK4 MG PO; +NAPROSYN500 MG PO; +ROBAXIN500 M1 PO
[2019-08-20 12:29] VITALS: BP 148/77
[2019-08-20] MEDS ORDERED: CYCLOBENZAPRINE10 MG PO (15:07)
[2019-08-20] MEDS ORDERED: Motrin,Rufen800 MG PO (15:07)
== END 2019-08-20 15:14 | disposition home or self-care (01) ==
LOC: ED 12:20
DX: S16.1XXA Strain of muscle, fascia and tendon at neck level, initial encounter (principal); I12.9 Hypertensive chronic kidney disease with stage 1 through stage 4 chronic kidney disease, or unspecified chronic kidney disease; N18.3 Chronic kidney disease, stage 3 (moderate); K21.9 Gastro-esophageal reflux disease without esophagitis; Z79.899 Other long term (current) drug therapy; Z79.82 Long term (current) use of aspirin; Z87.891 Personal history of nicotine dependence; X58.XXXA Exposure to other specified factors, initial encounter; Y93.89 Activity, other specified; Y92.89 Other specified places as the place of occurrence of the external cause; Y99.8 Other external cause status

== ENCOUNTER 2019-12-01 18:57 | Emergency (ER) | payer OTHER ==
[~2019-12-01] VITALS: Ht 180.3 cm; Wt 88.5 kg
[2019-12-01 19:05] VITALS: BP 154/95
== END 2019-12-01 19:54 | disposition home or self-care (01) ==
LOC: ED 18:57
DX: S61.211A Laceration without foreign body of left index finger without damage to nail, initial encounter (principal); I25.2 Old myocardial infarction; E11.9 Type 2 diabetes mellitus without complications; I10 Essential (primary) hypertension; J45.909 Unspecified asthma, uncomplicated; K21.9 Gastro-esophageal reflux disease without esophagitis; F41.9 Anxiety disorder, unspecified; Z79.899 Other long term (current) drug therapy; Z79.2 Long term (current) use of antibiotics

== ENCOUNTER → 2024-05-14 | Outpatient (CLI) | payer OTHER | END | disposition home or self-care (01) | LOC: RESCLI 09:12 | PROVIDERS: ATTEND Family Medicine | DX: M25.511 Pain in right shoulder (principal); I10 Essential (primary) hypertension; I25.10 Atherosclerotic heart disease of native coronary artery without angina pectoris; E78.5 Hyperlipidemia, unspecified; D22.9 Melanocytic nevi, unspecified; B37.9 Candidiasis, unspecified; J30.9 Allergic rhinitis, unspecified; K21.9 Gastro-esophageal reflux disease without esophagitis; E61.1 Iron deficiency; E55.9 Vitamin D deficiency, unspecified; E11.42 Type 2 diabetes mellitus with diabetic polyneuropathy; Z72.0 Tobacco use; Z79.899 Other long term (current) drug therapy ==

== ENCOUNTER 2025-02-27 16:25 | Emergency (ER) | payer OTHER ==
[~2025-02-27] VITALS: Ht 177.8 cm; Wt 86.2 kg
[2025-02-27 17:04] LABS: BASO # 0.0 10*3/uL (0.0-0.1); BASO % 0.2 % (0.0-1.0); EOS # 0.2 10*3/uL (0.0-0.4); EOS % 2.0 % (1.0-4.0); MEAN CELL VOLUME 78.4 fl (81.0-99.0); MEAN CORPUSCULAR HGB 24.1 pg (27.0-31.0); MEAN PLATELET VOLUME 9.7 fl (9.6-12.3); MONO # 0.9 10*3/uL (0.1-1.0); MONO % 8.5 % (3.0-9.0); NEUT # 7.5 10*3/uL (2.3-7.9); NEUT % 74.4 % (47.0-73.0); NUCLEATED RED BLOOD CELL 0.0 % (0.0-0.0); NUCLEATED RED BLOOD CELL 0.0 10*3/uL (0.0-0.0); PLATELET COUNT AUTOMATED 184 10*3/uL (130-400); RED CELL DISTRI WIDTH 13.2 % (0-14.5)
[2025-02-27 17:37] LABS: BUN 19 mg/dl (9-23); SGPT/ALT 14 U/L (5-49)
[2025-02-27 21:23] VITALS: BP 188/90
== END 2025-02-27 21:23 | disposition short-term general hospital (02) ==
LOC: ED 16:25
PROVIDERS: Internal Medicine
DX: L03.011 Cellulitis of right finger (principal); R22.31 Localized swelling, mass and lump, right upper limb; Z79.899 Other long term (current) drug therapy; Z79.82 Long term (current) use of aspirin; Z98.890 Other specified postprocedural states; Z90.89 Acquired absence of other organs; Z87.891 Personal history of nicotine dependence